=== PATIENT | female | born 1935 | race Two or more races ===

== ENCOUNTER 2018-07-17 20:21 | Inpatient (IN) | payer OTHER ==
[~2018-07-17] VITALS: Ht 157.5 cm; Wt 45.2 kg
[2018-07-17 21:34] LABS: MEAN CORPUSCULAR HEMOGLOBIN 36.6 pg (27.0-34.8); MEAN CORPUSCULAR HGB CONC 33.2 g/dL (32.4-35.8); MEAN CORPUSCULAR VOLUME 110.3 fL (80-100); MEAN PLATELET VOLUME 7.1 fL (7.4-10.4); PLATELET COUNT 125 x10^3/uL (130-400); RED BLOOD COUNT 2.63 x10^6/uL (3.82-5.3); RED CELL DISTRIBUTION WIDTH 15.1 % (9.6-15.2)
--- NOTE | 2018-07-17 21:39 | NUR ---
PT RESTING IN [facility] AT THIS TIME WITH FAMILY AT BS. PT VSS. PT DENIES ANY NEEDS AT THIS TIME. CALL LIGHT IS WITHIN REACH.
[2018-07-17 21:47] LABS: ANION GAP 6 mmol/L (5-15); CALCIUM 8.1 mg/dL (8.5-10.1); CHLORIDE 104 mmol/L (98-107)
[2018-07-17 21:48] LABS: BASOPHILS # (AUTO) 0.06 x10^3/uL (0-0.1); BASOPHILS % (AUTO) 1 % (0-1); EOSINOPHILS # (AUTO) 0.11 x10^3/uL (0-0.4); EOSINOPHILS % (AUTO) 3 % (1-7); LYMPHOCYTES # (AUTO) 1.16 x10^3/uL (1-3.4); LYMPHOCYTES % (AUTO) 27 % (22-44); MD MORPH REVIEW ONLY; MONOCYTES # (AUTO) 0.35 x10^3/uL (0.2-0.8); MONOCYTES % (AUTO) 8 % (2-9); NEUTROPHILS # (AUTO) 2.55 x10^3/uL (1.8-6.8); NEUTROPHILS % (AUTO) 60 % (42-75)
[2018-07-17 21:49] LABS: OVALOCYTES 1+; POLYCHROMASIA 1+
--- NOTE | 2018-07-17 21:53 | NUR ---
DR. SHARMA AT BS WITH PT AND PT FAMILY
[2018-07-17 21:54] LABS: ALANINE AMINOTRANSFERASE 22 U/L (12-78); ALKALINE PHOSPHATASE 87 U/L (45-117); BILIRUBIN,TOTAL 0.9 mg/dL (0.2-1.0); CREATININE 1.28 mg/dL (0.55-1.02); TOTAL PROTEIN 6.9 g/dL (6.4-8.2); TROPONIN I 0.061 ng/mL (0.000-0.045)
[2018-07-17 21:56] LABS: ANISOCYTOSIS 2+
[2018-07-17 21:57] LABS: TEAR DROPS 1+
[2018-07-17 21:58] LABS: <PLATELET ESTIMATE> DECREASED; LARGE PLATELETS 1+
--- NOTE | 2018-07-17 22:10 | NUR ---
PT AMBULATES TO RESTROOM FOR UA SAMPLE WITH STEADY GAIT AND ASSISTANCE OF FAMILY.
[2018-07-17 22:34] LABS: MICROSCOPIC AUTO
--- NOTE | 2018-07-17 23:09 | NUR ---
PT IV INFILTRATED PER CT. 2ND IV PLACED. LM WITH CT TO INDICATE PT IS READY FOR IMAGING.
--- NOTE | 2018-07-17 23:28 | NUR ---
pt back from ct via [facility].
[2018-07-17] MEDS ORDERED: OMNIPAQUE 350 MG/ML, 100ML BOTTLE ONE (23:42)
[2018-07-18] MEDS ORDERED: FUROSEMIDE 20 MG/2 ML IV ONE
[2018-07-18] MEDS ORDERED: ASPIRIN 325 MG TABLET ONE (00:11)
[2018-07-18] MEDS ORDERED: FUROSEMIDE 20 MG/2 ML ONE (00:11)
--- NOTE | 2018-07-18 00:16 | NUR ---
PT MEDICATED PER MAR.
[2018-07-18] MEDS ORDERED: ASPIRIN 325 MG TABLET PO ONE (00:30)
--- NOTE | 2018-07-18 00:36 | NUR ---
REPORT OF PT TO RN LIVAN. ALL QUESTIONS ANSWERED.
[2018-07-18] MEDS ORDERED: NIFE30TA15 PO ×2 (00:54→01:02)
[2018-07-18] MEDS ORDERED: FURO20TA3 PO (01:00)
[2018-07-18] MEDS ORDERED: POTA10CA PO (01:00)
[2018-07-18] MEDS ORDERED: ASPI81TA45 PO (01:00)
[2018-07-18] MEDS ORDERED: AMIO200T42 PO (01:00)
[2018-07-18] MEDS ORDERED: CALC-183 PO (01:00)
[2018-07-18 01:20] VITALS: BP 121/74
[2018-07-18] MEDS ORDERED: DOCUSATE 100 MG CAPSULE PO PRN (02:00)
[2018-07-18] MEDS ORDERED: hydrALAzine 20 MG/ML, 1ML IVPush PRN (02:00)
[2018-07-18] MEDS ORDERED: ACETAMINOPHEN 325 MG TABLET PO PRN (02:00)
[2018-07-18] MEDS ORDERED: ALBUTEROL SULFATE 2.5 MG/3 ML NPPB PRN (03:30)
[2018-07-18] MEDS: HEPARIN 5,000 UNITS/ML, 1ML SQ SCH ×3 (04:00→20:25)
[2018-07-18 04:32] LABS: TROPONIN I 0.089 ng/mL (0.000-0.045)
[2018-07-18] MEDS ORDERED: FUROSEMIDE 40 MG/4 ML IV ONE (08:30)
[2018-07-18 08:43] VITALS: BP 100/63
[2018-07-18] MEDS: CALCIUM/VITAMIN D3 250-125 TABLET PO SCH (09:01)
[2018-07-18] MEDS: ASPIRIN 81 MG TABLET EC PO SCH (09:01)
[2018-07-18] MEDS: AMIODARONE 200 MG TABLET PO SCH (09:01)
[2018-07-18] MEDS: POTASSIUM CHLORIDE 10 MEQ TABLET.ER PO SCH (09:01)
[2018-07-18 09:02] VITALS: BP 118/83
[2018-07-18 10:48] LABS: BASOPHILS # (AUTO) 0.04 x10^3/uL (0-0.1); BASOPHILS % (AUTO) 1 % (0-1); EOSINOPHILS # (AUTO) 0.08 x10^3/uL (0-0.4); EOSINOPHILS % (AUTO) 2 % (1-7); LYMPHOCYTES # (AUTO) 1.05 x10^3/uL (1-3.4); LYMPHOCYTES % (AUTO) 30 % (22-44); MD NO; MEAN CORPUSCULAR HEMOGLOBIN 36.6 pg (27.0-34.8); MEAN CORPUSCULAR HGB CONC 33.5 g/dL (32.4-35.8); MEAN PLATELET VOLUME 6.9 fL (7.4-10.4); MONOCYTES # (AUTO) 0.39 x10^3/uL (0.2-0.8); MONOCYTES % (AUTO) 11 % (2-9); NEUTROPHILS # (AUTO) 1.99 x10^3/uL (1.8-6.8); NEUTROPHILS % (AUTO) 56 % (42-75); PLATELET COUNT 117 x10^3/uL (130-400); RED BLOOD COUNT 2.54 x10^6/uL (3.82-5.3); RED CELL DISTRIBUTION WIDTH 15.5 % (9.6-15.2)
[2018-07-18 10:57] LABS: ALBUMIN 2.7 g/dL (3.4-5.0); ANION GAP 9 mmol/L (5-15); CALCIUM 8.4 mg/dL (8.5-10.1); CHLORIDE 105 mmol/L (98-107); CREATININE 1.16 mg/dL (0.55-1.02)
[2018-07-18 15:00] VITALS: BP 112/68
[2018-07-18 19:11] VITALS: BP 103/64
[2018-07-19 01:57] VITALS: BP 119/74
[2018-07-19] MEDS: HEPARIN 5,000 UNITS/ML, 1ML SQ SCH ×3 (04:25→20:04)
[2018-07-19 04:38] LABS: MEAN CORPUSCULAR HEMOGLOBIN 37.2 pg (27.0-34.8); MEAN CORPUSCULAR HGB CONC 33.4 g/dL (32.4-35.8); MEAN CORPUSCULAR VOLUME 111.5 fL (80-100); MEAN PLATELET VOLUME 7.3 fL (7.4-10.4); PLATELET COUNT 122 x10^3/uL (130-400); RED BLOOD COUNT 2.52 x10^6/uL (3.82-5.3); RED CELL DISTRIBUTION WIDTH 15.4 % (9.6-15.2)
[2018-07-19 04:47] LABS: ANION GAP 7 mmol/L (5-15); CALCIUM 7.8 mg/dL (8.5-10.1); CHLORIDE 106 mmol/L (98-107)
[2018-07-19 04:48] LABS: CREATININE 1.27 mg/dL (0.55-1.02)
[2018-07-19 05:55] LABS: MD YES
[2018-07-19 05:58] LABS: ANISOCYTOSIS 2+; BASOS#(MANUAL) 0.08 x10^3/uL (0-0.1); BASOS% (MANUAL) 2 % (0-1); EOS#(MANUAL) 0.15 x10^3/uL (0.0-0.4); EOS% (MANUAL) 4 % (1-7); LYMPH#(MANUAL) 1.29 x10^3/uL (1-3.4); LYMPHS% (MANUAL) 34 % (22-44); MONOS#(MANUAL) 0.11 x10^3/uL (0.3-2.7); MONOS% (MANUAL) 3 % (2-9); OVALOCYTES 1+; POLYCHROMASIA 1+; SEG#(MANUAL) 2.17 x10^3/uL (1.8-6.8); SEGS% (MANUAL) 57 % (42-75)
[2018-07-19 05:59] LABS: TEAR DROPS 1+
[2018-07-19 06:00] LABS: <PLATELET ESTIMATE> DECREASED; LARGE PLATELETS 1+
[2018-07-19] MEDS: ASPIRIN 81 MG TABLET EC PO SCH (09:00)
[2018-07-19] MEDS: POTASSIUM CHLORIDE 10 MEQ TABLET.ER PO SCH (09:00)
[2018-07-19] MEDS: CALCIUM/VITAMIN D3 250-125 TABLET PO SCH (09:00)
[2018-07-19] MEDS: AMIODARONE 200 MG TABLET PO SCH (09:00)
[2018-07-19 09:10] VITALS: BP 120/76
[2018-07-19 13:00] VITALS: BP 118/82
[2018-07-19 20:22] VITALS: BP 130/82
[2018-07-19] MEDS ORDERED: NITROGLYCERIN 0.4 MG BOTTLE (25 TABS) SL PRN (23:30)
[2018-07-19] MEDS ORDERED: NITROGLYCERIN 0.4 MG/SPRAY SL PRN (23:30)
[2018-07-20 00:47] VITALS: BP 147/90
[2018-07-20] MEDS: HEPARIN 5,000 UNITS/ML, 1ML SQ SCH ×2 (04:49→12:00)
[2018-07-20 08:10] VITALS: BP 128/79
[2018-07-20] MEDS ORDERED: FUROSEMIDE 20 MG/2 ML IV SCH (09:00)
[2018-07-20] MEDS: CALCIUM/VITAMIN D3 250-125 TABLET PO SCH (09:46)
[2018-07-20] MEDS: POTASSIUM CHLORIDE 10 MEQ TABLET.ER PO SCH (09:46)
[2018-07-20] MEDS: ASPIRIN 81 MG TABLET EC PO SCH (09:46)
[2018-07-20] MEDS: AMIODARONE 200 MG TABLET PO SCH (09:46)
[2018-07-20 11:43] LABS: ANION GAP 6 mmol/L (5-15); CALCIUM 8.1 mg/dL (8.5-10.1); CHLORIDE 107 mmol/L (98-107); CREATININE 1.23 mg/dL (0.55-1.02)
[2018-07-20] MEDS ORDERED: NIFE30TA15 PO (12:39)
[2018-07-20] MEDS ORDERED: AMIO200T42 PO (12:39)
[2018-07-20] MEDS ORDERED: FURO20TA3 PO (12:39)
[2018-07-20] MEDS ORDERED: ASPI81TA45 PO (12:39)
[2018-07-20] MEDS ORDERED: CALC-183 PO (12:39)
[2018-07-20] MEDS ORDERED: POTA10CA PO (12:39)
== END 2018-07-20 14:45 | disposition home or self-care (01) | DRG 291 ==
LOC: ED 23:43 → EDIP 07-18 00:01 → 5SO 07-18 00:54 → DCLOUNGE 07-20 14:19
PROVIDERS: ADMIT Internal Medicine; ATTEND Internal Medicine
DX: I11.0 Hypertensive heart disease with heart failure (principal); N17.0 Acute kidney failure with tubular necrosis; I31.3 Pericardial effusion (noninflammatory); I50.43 Acute on chronic combined systolic (congestive) and diastolic (congestive) heart failure; D64.9 Anemia, unspecified; I08.0 Rheumatic disorders of both mitral and aortic valves; I27.20 Pulmonary hypertension, unspecified; J44.9 Chronic obstructive pulmonary disease, unspecified; N28.89 Other specified disorders of kidney and ureter; R09.02 Hypoxemia; Z82.49 Family history of ischemic heart disease and other diseases of the circulatory system; Z83.3 Family history of diabetes mellitus; Z87.891 Personal history of nicotine dependence
CPT/HCPCS: 36415; 71046; 71275; 80048; 80053; 81001; 82040; 83880; 84484; 85025; 93005; 93306; 96374; G0378; J1644; J1940; Q9967